=== PATIENT | female | born 1935 | race Two or more races ===

== ENCOUNTER → 2017-08-17 | Outpatient (CLI) | payer MEDICARE, MEDICAID | END | disposition home or self-care (01) | LOC: HKI 10:06 | DX: M17.12 Unilateral primary osteoarthritis, left knee (principal); E03.9 Hypothyroidism, unspecified; Z96.651 Presence of right artificial knee joint; Z99.3 Dependence on wheelchair | CPT/HCPCS: 73562; 73562-50 ==